=== PATIENT | male | born 1965 | race Caucasian/White ===

== ENCOUNTER 2021-04-25 16:22 | Emergency (ER) | payer OTHER, SELFPAY ==
[2021-04-25 16:29] VITALS: BP 136/86; PULSE 96; RESP 18; TEMP 36.6; O2SAT 94; BMI 31.6
--- NOTE | 2021-04-25 16:47 | ED.WOUNDLAC ---
HPI - Wound/Laceration General Chief Complaint: Wound/Laceration Stated Complaint: lac Time Seen by Provider: 04/25/21 16:46 History of Present Illness HPI narrative: Patient complains of left index finger laceration when he accidentally cut himself with the tool, no numbness weakness or tingling, no other injury Related Data Allergies Allergy/AdvReac Type Severity Reaction Status Date / Time No Known Allergies Allergy Unverified 07/30/20 17:17 Review of Systems Review of Systems: Positive for left index finger laceration Negatives are no fever no chills no dizziness no weakness no fainting no numbness weakness or tingling no joint pain Yes all other systems are reviewed and are negative [facility] Past Medical History Source: obtained from family Medical History (Updated 05/02/21 @ 00:01 by Alonzo Damaria ines) No known health problems Social History Social History Advance Directives: No Advance Directives Information Provided: No Physical Exam Vital Signs: Vital Signs: Last Vital Signs Temp 97.8 F 04/25/21 16:29 Pulse 96 04/25/21 16:29 Resp 18 04/25/21 16:29 BP 136/86 04/25/21 16:29 Pulse Ox 94 04/25/21 16:29 Body Mass Index 31.6 General appearance no acute distress Head is normocephalic atraumatic Neck is supple Respiratory no distress Left index finger has 1.5 cm laceration proximal phalanx Neurovascular intact no numbness weakness no tendon deficit, full range of motion in all joints Course Course Course Narrative: Left index finger laceration note Digital block with 6 cc of 1% lidocaine is placed with good anesthesia Wound is inspected no foreign body It is cleansed and irrigated with normal saline Four sutures are placed and bleeding is controlled and dressing is applied Discharge Plan Discharge Clinical Impression: Laceration Patient Disposition: Home, Self-Care Additional Instructions: Stitches out in 7 days He got a tetanus shot Return any time for redness swelling any sign of infection Stand Alone Forms: Work/School Release Interventions: ED Discharge Assessment Last Done: 04/25/21 18:32 Discharge Date/Time: 04/25/21 18:33
[2021-04-25] MEDS: Diphth,Pertus(ACell),Tet Adult 0.5 ML SYRINGE IM (17:22)
[2021-04-25] MEDS: Lidocaine HCl 1 % MPF 5 ML VIAL SUBCUT ×2 (17:22)
== END 2021-04-25 18:33 | disposition home or self-care (01) ==
PROVIDERS: Emergency Provider Internal Medicine
DX: S61.211A Laceration without foreign body of left index finger without damage to nail, initial encounter (principal); W27.8XXA Contact with other nonpowered hand tool, initial encounter; Y93.9 Activity, unspecified; Y92.9 Unspecified place or not applicable; Y99.9 Unspecified external cause status
CPT/HCPCS: 12001; 90471; 90715; 99284

== ENCOUNTER 2021-05-01 13:43 | Emergency (ER) | payer OTHER, SELFPAY ==
--- NOTE | 2021-05-01 14:17 | ED.WOUNDLAC ---
HPI - Wound/Laceration General Chief Complaint: Wound/Laceration Stated Complaint: suture removal Time Seen by Provider: 05/01/21 14:17 History of Present Illness HPI narrative: Patient here today for suture removal of left index finger laceration that was sutured 7 days ago, no complaints no fever no chills no redness no swelling Related Data Allergies Allergy/AdvReac Type Severity Reaction Status Date / Time No Known Allergies Allergy Unverified 07/30/20 17:17 Review of Systems Review of Systems: Negatives are no fever no chills no swelling no redness no discharge no joint pain no rash Yes all other systems are reviewed and are negative [facility] Past Medical History Source: nursing notes reviewed Medical History (Updated 05/01/21 @ 14:20 by NICK James) No known health problems Social History Social History Advance Directives: No Advance Directives Information Provided: No Physical Exam Vital Signs: General appearance is no acute distress Head is normocephalic atraumatic Neck is supple Respiratory no distress Left index finger has [address] on the palmar aspect of the distal phalanx, no redness no discharge no swelling, all joint movement is normal full flexor tendon function, sensation and motor intact Course Course Course Narrative: Left index finger 4 sutures are removed without problem no dehiscence no discharge no bleeding Discharge Plan Discharge Clinical Impression: Visit for suture removal Patient Disposition: Home, Self-Care Additional Instructions: Stitches were removed, no sign of any infection, okay for all activity
[2021-05-01 14:25] VITALS: BP 136/76; PULSE 78; RESP 16; TEMP 36.9; O2SAT 94; BMI 31.6
== END 2021-05-01 14:35 | disposition home or self-care (01) ==
PROVIDERS: Emergency Provider Emergency Medicine
DX: S61.211D Laceration without foreign body of left index finger without damage to nail, subsequent encounter (principal); X58.XXXD Exposure to other specified factors, subsequent encounter
CPT/HCPCS: 99283

== ENCOUNTER 2021-06-13 22:21 | Emergency (ER) | payer OTHER, SELFPAY ==
--- NOTE | 2021-06-13 | ECG_ITS ---
Test Reason : DIZZINESS Blood Pressure : / mmHG Vent. Rate : 058 BPM Atrial Rate : 058 BPM P-R Int : 172 ms QRS Dur : 096 ms QT Int : 426 ms P-R-T Axes : 038 004 051 degrees QTc Int : 418 ms Sinus bradycardia Otherwise normal ECG When compared to the previous EKG of No significant changes seen Referred By: Generic ED Physician Electronically Signed By:Vinicio Albarado
[2021-06-13 22:26] VITALS: BP 141/97; PULSE 60; RESP 18; TEMP 36.4; O2SAT 97; BMI 30.9
[2021-06-13 22:42] LABS: Glucose, Whole Blood 113 mg/dL (60-115)
[2021-06-13 22:54] LABS: Basophils Percent Auto 0.5 % (0-2); Eosinophils Absolute Auto 0.2 X10*3/uL (0.0-0.4); Eosinophils Percent Auto 3.7 % (0-4); Hematocrit 44.4 % (42-52); Hemoglobin 14.7 g/dl (14.0-18.0); Imm Gran Abs Auto 0.01 X10*3/uL (0.00-0.03); Imm Gran Pct Auto 0.2 % (0.0-0.4); Lymphocytes Absolute Auto 1.8 X10*3/uL (1.2-4.9); Mean Corpuscular HGB Conc 33.1 g/dl (31.0-36.0); Mean Corpuscular Hemoglobin 31.1 pg (27.0-33.0); Mean Corpuscular Volume 94.1 fL (80-98); Mean Platelet Volume 8.9 fL (9.4-12.4); Monocytes Absolute Auto 0.6 X10*3/uL (0.1-1.2); Monocytes Percent Auto 10.2 % (2-11); Neutrophils Absolute Auto 3.6 X10*3/uL (2.0-8.3); Neutrophils Percent Auto 57.4 % (45-73); Platelet Count 288 X10*3/uL (160-400); Red Blood Count 4.72 X10*6/uL (4.60-5.80); Red Cell Distribution Width 12.9 % (11.0-16.0); White Blood Count 6.3 X10*3/uL (4.8-10.8)
[2021-06-13 22:55] LABS: MANUAL DIFF FLAG NO
[2021-06-13 23:29] LABS: Alanine Aminotransferase 18 U/L (0-40); Albumin Level 4.1 g/dL (3.5-5.0); Alkaline Phosphatase 95 U/L (39-117); Anion Gap 13 (12-20); Aspartate Amino Transferase 15 U/L (5-37); Bilirubin Total 0.3 mg/dL (0.0-1.0); Blood Urea Nitrogen 17 mg/dL (9-16); Calcium 9.2 mg/dL (8.4-10.2); Carbon Dioxide 26 mmol/L (22-29); Chloride 106 mmol/L (96-108); Estimated Glomerular Filt Rate > 60; Glucose Random 120 mg/dL (60-115); Lipase 30 U/L (8-78); Potassium 4.2 mmol/L (3.3-5.1); Sodium 141 mmol/L (135-145); Total Protein 6.9 g/dL (6.5-8.0)
[2021-06-13 23:41] VITALS: BP 142/84; PULSE 59; RESP 16; O2SAT 95
--- NOTE | 2021-06-14 01:52 | ED.DIZZY ---
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 while he was taking a shower. He states that the room was spinning around him but denies any associated fevers, chills, shortness of breath, chest pain/palpitations, nausea at that initial onset, denies any visual/auditory/speech changes, denies any headaches and was able to finish his shower and continued to be dizzy while he was walking into the kitchen to eat dinner but denies any gait instability while doing this. He states that he continued with his dizziness while he was eating dinner and went to lay down, but then became mildly nauseous and vomited 1 time. He then came into the emergency room and reports that during his weight he has had mild improvement. Related Data Allergies Allergy/AdvReac Type Severity Reaction Status Date / Time No Known Allergies Allergy Unverified 07/30/20 17:17 Review of Systems Review of Systems: Pertinent positives and negatives as stated in HPI 10 point review of systems is otherwise negative. PMFSH Past Medical History Source: nursing notes reviewed Medical History Cyst No known health problems Social History Social History Advance Directives: No Advance Directives Information Provided: No Physical Exam Vital Signs: Vital Signs: Last Vital Signs Temp 97.6 F 06/13/21 22:26 Pulse 59 06/13/21 23:41 Resp 16 06/13/21 23:41 BP 142/84 H 06/13/21 23:41 Pulse Ox 95 06/13/21 23:41 Body Mass Index 30.9 VITAL SIGNS: Reviewed. GENERAL: Well developed, well nourished, in no acute distress. HEAD: Normocephalic/atraumatic EYES: PERRLA, EOMI intact without pain, no nystagmus/pallor/icterus noted EARS: Ext canals without abnormality, TMs non-bulging and non-erythematous NOSE: Nares patent bilateral OROPHARYNX: no oral lesions noted, posterior pharynx clear NECK: Supple, no adenopathy LUNGS: Normal breath sounds. No adventitious sounds or accessory muscle use. SpO2<95> CARDIOVASCULAR: Regular rate and rhythm without noted murmurs, no JVD or lower extremity edema. ABDOMEN: Soft, non-tender, non-distended with bowel sounds. MUSCULOSKELETAL: No tenderness, deformities, or effusions noted on gross inspection. EXTREMITIES: No cyanosis, clubbing or edema. SKIN: Inspection of the skin reveals no rashes, ulcerations, jaundice, pallor, or petechiae. NEUROLOGIC: Alert and oriented x 4. Strength and sensation to light touch were grossly intact x 4, no facial asymmetry, no pronator drift, cranial nerves 2-12 are grossly intact, no truncal or gait instability noted, cerebellar testing is intact Course Course Course Narrative: 55-year-old male with history and clinical presentation consistent with vertigo without ataxic or focal symptoms lending itself to low clinical suspicion for intracranial abnormality. Review of all investigations negative for acute findings and serial troponins while detectable were not elevated. All results and findings were discussed with the patient at bedside and on re-evaluation he stated that he felt better after receiving the meclizine. He was strongly encouraged to follow-up with his primary care provider. MDM - Dizziness Lab Data Result diagrams: 06/13/21 22:47 06/13/21 22:47 Labs: Lab Results 06/13/21 06/13/21 06/13/21 Range/Units 22:38 22:47 22:47 WBC 6.3 (4.8-10.8) X10*3/uL RBC 4.72 (4.60-5.80) X10*6/uL Hgb 14.7 (14.0-18.0) g/dl Hct 44.4 (42-52) % MCV 94.1 (80-98) fL MCH 31.1 (27.0-33.0) pg MCHC 33.1 (31.0-36.0) g/dl RDW 12.9 (11.0-16.0) % Plt Count 288 (160-400) X10*3/uL MPV 8.9 L (9.4-12.4) fL Immature Gran % (Auto) 0.2 (0.0-0.4) % Neut % (Auto) 57.4 (45-73) % Lymph % (Auto) 28.0 (20-40) % [place] % (Auto) 10.2 (2-11) % Eos % (Auto) 3.7 (0-4) % Baso % (Auto) 0.5 (0-2) % Lymph # (Auto) 1.8 (1.2-4.9) X10*3/uL [place] # (Auto) 0.6 (0.1-1.2) X10*3/uL Eos # (Auto) 0.2 (0.0-0.4) X10*3/uL Baso # (Auto) 0.0 (0.0-0.2) X10*3/uL Abs Immat Gran (auto) 0.01 (0.00-0.03) X10*3/uL Absolute Neuts (auto) 3.6 (2.0-8.3) X10*3/uL Absolute Nucleated RBC 0.000 (0.0-0.012) X10*3/uL Nucleated RBC % (auto) 0.0 (0.0-0.2) /100WBC Sodium 141 (135-145) mmol/L Potassium 4.2 (3.3-5.1) mmol/L Chloride 106 (96-108) mmol/L Carbon Dioxide 26 (22-29) mmol/L Anion Gap 13 (12-20) BUN 17 H (9-16) mg/dL Creatinine 0.82 (0.5-1.4) mg/dL Estim Creat Clear Calc 97.0 Estimated GFR > 60 POC Glucose 113 (60-115) mg/dL Random Glucose 120 H (60-115) mg/dL Calcium 9.2 (8.4-10.2) mg/dL Total Bilirubin 0.3 (0.0-1.0) mg/dL AST 15 (5-37) U/L ALT 18 (0-40) U/L Alkaline Phosphatase 95 (39-117) U/L Troponin I High Sens (<3.5-35.0) ng/L Total Protein 6.9 (6.5-8.0) g/dL Albumin 4.1 (3.5-5.0) g/dL Lipase 30 (8-78) U/L Urine Opiates Screen (Not Detect) Ur Barbiturates Screen (Not Detect) Ur Phencyclidine Scrn (Not Detect) Ur Amphetamines Screen (Not Detect) U Benzodiazepines Scrn (Not Detect) Urine Cocaine Screen (Not Detect) U Marijuana (THC) Screen (Not Detect) Ethyl Alcohol mg/dL 06/13/21 06/13/21 06/14/21 Range/Units 22:47 22:47 02:01 WBC (4.8-10.8) X10*3/uL RBC (4.60-5.80) X10*6/uL Hgb (14.0-18.0) g/dl Hct (42-52) % MCV (80-98) fL MCH (27.0-33.0) pg MCHC (31.0-36.0) g/dl RDW (11.0-16.0) % Plt Count (160-400) X10*3/uL MPV (9.4-12.4) fL Immature Gran % (Auto) (0.0-0.4) % Neut % (Auto) (45-73) % Lymph % (Auto) (20-40) % [place] % (Auto) (2-11) % Eos % (Auto) (0-4) % Baso % (Auto) (0-2) % Lymph # (Auto) (1.2-4.9) X10*3/uL [place] # (Auto) (0.1-1.2) X10*3/uL Eos # (Auto) (0.0-0.4) X10*3/uL Baso # (Auto) (0.0-0.2) X10*3/uL Abs Immat Gran (auto) (0.00-0.03) X10*3/uL Absolute Neuts (auto) (2.0-8.3) X10*3/uL Absolute Nucleated RBC (0.0-0.012) X10*3/uL Nucleated RBC % (auto) (0.0-0.2) /100WBC Sodium (135-145) mmol/L Potassium (3.3-5.1) mmol/L Chloride (96-108) mmol/L Carbon Dioxide (22-29) mmol/L Anion Gap (12-20) BUN (9-16) mg/dL Creatinine (0.5-1.4) mg/dL Estim Creat Clear Calc Estimated GFR POC Glucose (60-115) mg/dL Random Glucose (60-115) mg/dL Calcium (8.4-10.2) mg/dL Total Bilirubin (0.0-1.0) mg/dL AST (5-37) U/L ALT (0-40) U/L Alkaline Phosphatase (39-117) U/L Troponin I High Sens 4.0 (<3.5-35.0) ng/L Total Protein (6.5-8.0) g/dL Albumin (3.5-5.0) g/dL Lipase (8-78) U/L Urine Opiates Screen Not Detected (Not Detect) Ur Barbiturates Screen Not Detected (Not Detect) Ur Phencyclidine Scrn Not Detected (Not Detect) Ur Amphetamines Screen Not Detected (Not Detect) U Benzodiazepines Scrn Not Detected (Not Detect) Urine Cocaine Screen Not Detected (Not Detect) U Marijuana (THC) Screen Not Detected (Not Detect) Ethyl Alcohol < 10 mg/dL 06/14/21 Range/Units 03:19 WBC (4.8-10.8) X10*3/uL RBC (4.60-5.80) X10*6/uL Hgb (14.0-18.0) g/dl Hct (42-52) % MCV (80-98) fL MCH (27.0-33.0) pg MCHC (31.0-36.0) g/dl RDW (11.0-16.0) % Plt Count (160-400) X10*3/uL MPV (9.4-12.4) fL Immature Gran % (Auto) (0.0-0.4) % Neut % (Auto) (45-73) % Lymph % (Auto) (20-40) % [place] % (Auto) (2-11) % Eos % (Auto) (0-4) % Baso % (Auto) (0-2) % Lymph # (Auto) (1.2-4.9) X10*3/uL [place] # (Auto) (0.1-1.2) X10*3/uL Eos # (Auto) (0.0-0.4) X10*3/uL Baso # (Auto) (0.0-0.2) X10*3/uL Abs Immat Gran (auto) (0.00-0.03) X10*3/uL Absolute Neuts (auto) (2.0-8.3) X10*3/uL Absolute Nucleated RBC (0.0-0.012) X10*3/uL Nucleated RBC % (auto) (0.0-0.2) /100WBC Sodium (135-145) mmol/L Potassium (3.3-5.1) mmol/L Chloride (96-108) mmol/L Carbon Dioxide (22-29) mmol/L Anion Gap (12-20) BUN (9-16) mg/dL Creatinine (0.5-1.4) mg/dL Estim Creat Clear Calc Estimated GFR POC Glucose (60-115) mg/dL Random Glucose (60-115) mg/dL Calcium (8.4-10.2) mg/dL Total Bilirubin (0.0-1.0) mg/dL AST (5-37) U/L ALT (0-40) U/L Alkaline Phosphatase (39-117) U/L Troponin I High Sens 4.0 (<3.5-35.0) ng/L Total Protein (6.5-8.0) g/dL Albumin (3.5-5.0) g/dL Lipase (8-78) U/L Urine Opiates Screen (Not Detect) Ur Barbiturates Screen (Not Detect) Ur Phencyclidine Scrn (Not Detect) Ur Amphetamines Screen (Not Detect) U Benzodiazepines Scrn (Not Detect) Urine Cocaine Screen (Not Detect) U Marijuana (THC) Screen (Not Detect) Ethyl Alcohol mg/dL Discharge Plan Discharge Clinical Impression: Vertigo Patient Disposition: Home, Self-Care Instructions: Vertigo (ED) Additional Instructions: 1. Establezca un seguimiento con un proveedor de atenci?n primaria lo antes posible. 2. Contin?e nadine hidratado, especialmente con agua. Regrese a la lauren de emergencias por un empeoramiento francisco j de los s?ntomas. Referrals: Physician,Unknown [Primary Care Provider] - 2 days Print Language: Urdu
[2021-06-14 01:57] LABS: Ethanol < 10 mg/dL
[2021-06-14] MEDS: Meclizine HCl 25 MG TABLET PO (02:00)
[2021-06-14 02:21] LABS: Amphetamine Screen Urine Not Detected (Not Detect); Barbiturates, Urine Not Detected (Not Detect); Benzodiazepines Screen Urine Not Detected (Not Detect); Cannabinoid Screen Urine Not Detected (Not Detect); Cocaine Screen Urine Not Detected (Not Detect); Opiate Screen Urine Not Detected (Not Detect); Phencyclidine Screen Urine Not Detected (Not Detect)
== END 2021-06-14 05:02 | disposition home or self-care (01) ==
PROVIDERS: Emergency Provider Student in an Organized Health Care Education/Training Program
DX: R42 Dizziness and giddiness (principal); R11.10 Vomiting, unspecified; Z79.899 Other long term (current) drug therapy
CPT/HCPCS: 36415; 80053; 80307; 82077; 82947; 83690; 84484; 85025; 93005; 99283

== ENCOUNTER 2021-12-09 10:22 | Outpatient (REF) | payer OTHER, SELFPAY ==
[2021-12-09 12:10] LABS: Binax Internal Control QC Valid; Binax Now Covid-19 Ag Negative (Negative)
== END 2021-12-09 10:23 | disposition home or self-care (01) ==
LOC: HO.LAB 10:22
PROVIDERS: Visit Provider Internal Medicine
DX: Z20.822 Contact with and (suspected) exposure to COVID-19 (principal)
CPT/HCPCS: C9803

== ENCOUNTER 2024-10-31 08:12 | Emergency (ER) | payer OTHER, SELFPAY ==
[2024-10-31 08:16] VITALS: BP 147/90; PULSE 89; RESP 20; TEMP 36.4; O2SAT 94; BMI 31.9
[2024-10-31 08:39] VITALS: BP 146/89; PULSE 83; RESP 16; O2SAT 93
[2024-10-31 08:47] LABS: MANUAL DIFF FLAG NO
[2024-10-31 08:49] LABS: Basophils Percent Auto 0.3 % (0-2); Eosinophils Absolute Auto 0.2 X10*3/uL (0.0-0.4); Eosinophils Percent Auto 2.5 % (0-4); Hematocrit 43.8 % (42.0-52.0); Hemoglobin 15.2 g/dl (14.0-18.0); Imm Gran Abs Auto 0.01 X10*3/uL (0.00-0.03); Imm Gran Pct Auto 0.2 % (0.0-0.4); Lymphocytes Absolute Auto 1.9 X10*3/uL (1.2-4.9); Lymphocytes Percent Auto 29.4 % (20-40); Mean Corpuscular HGB Conc 34.7 g/dl (31.0-36.0); Mean Corpuscular Hemoglobin 31.8 pg (27.0-33.0); Mean Corpuscular Volume 91.6 fL (80.0-98.0); Mean Platelet Volume 8.9 fL (9.4-12.4); Monocytes Absolute Auto 0.6 X10*3/uL (0.1-1.2); Monocytes Percent Auto 10.1 % (2-11); Neutrophils Absolute Auto 3.7 x10*3/uL (2.0-8.3); Neutrophils Percent Auto 57.5 % (45-73); Platelet Count 297 X10*3/uL (160-400); Red Blood Count 4.78 X10*6/uL (4.60-5.80); Red Cell Distribution Width 12.6 % (11.0-16.0); White Blood Count 6.4 X10*3/uL (4.8-10.8)
[2024-10-31 08:51] LABS: Appearance Urine Clear; Color Urine Yellow; Glucose Urine UA Negative (Negative); Leukocyte Esterase Urine Large (3+) (Negative); Nitrite Urine Negative (Negative); Specific Gravity - Urine 1.015 (1.005-1.025); UMIC TRIGGER UACC YES; Urine Blood Negative (Negative); Urine Ketones Negative (Negative); Urine Protein Negative (Neg-Trace)
[2024-10-31 09:00] LABS: Bacteria Urine None Seen (None Seen); Hyaline Casts Urine 0-2 /LPF (0-2); RBC Urine 0-2 /HPF (0-2); Squamous Epithelial Cell Urine 0-2 /HPF (0-2); UACC Culture Trigger YES
[2024-10-31 09:31] LABS: Alanine Aminotransferase 18 U/L (0-40); Alkaline Phosphatase 67 U/L (39-117); Anion Gap 10 (12-20); Aspartate Amino Transferase 19 U/L (5-37); Bilirubin Direct 0.2 mg/dL (0.0-0.5); Bilirubin Total 0.6 mg/dL (0.0-1.0); Blood Urea Nitrogen 11 mg/dL (9-16); Calcium 9.2 mg/dL (8.4-10.2); Carbon Dioxide 28 mmol/L (22-29); Chloride 107 mmol/L (96-108); Creatinine Clr Calc Pharmacy 99.9; Estimated Glomerular Filt Rate > 60; Glucose Random 92 mg/dL (60-115); Lipase 19 U/L (8-78); Potassium 3.9 mmol/L (3.3-5.1); Sodium 141 mmol/L (135-145); Total Protein 7.1 g/dL (6.5-8.0)
--- NOTE | 2024-10-31 09:37 | ED_ITS ---
HPI - General Adult General Chief complaint: General Medical Stated complaint: Rectal bleeding Time Seen by Provider: 10/31/24 08:35 History of Present Illness HPI narrative: Patient is a 59-year-old male presented today with having at 1st stool now pain in the rectum, blood noted. Symptoms been ongoing for about 24-48 hours. Positive increased pain. No coughing or congestion or upper respiratory symptoms. No abdominal surgery done in the past. No significant past medical history. No chest pain or shortness of breath. Not on blood thinners. Related Data Previous Rx's ?Medication ?Instructions ?Recorded levofloxacin 500 mg tablet 500 mg PO DAILY #7 tabs 10/31/24 Allergies Allergy/AdvReac Type Severity Reaction Status Date / Time No Known Allergies Allergy Verified 10/31/24 08:18 Review of Systems 2 Review of Systems: Positive pain to the anal area Positive bloody stool Yes all other systems are reviewed and are negative PMFSH Past Medical History Attestation statement: The following information was validated with the patient. Medical History Cyst No known health problems Social History Social History Smoked in Last 30 Days: No Use of substances other than those prescribed or required for medical reasons: No Advance Directives: No Advance Directives Information Provided: Yes Do you have a plan to hurt others: No Plan Physical Exam ED Vital Signs: Vital Signs - 24 hr 10/31/24 08:16 10/31/24 08:39 Temperature 97.6 F Pulse Rate 89 83 Respiratory Rate 20 16 Blood Pressure 147/90 H 146/89 H Pulse Oximetry 94 93 Oxygen Delivery Method Room Air Room Air BMI result Body Mass Index 31.9 Appearance: Alert. Oriented X3. No acute distress. Eyes: Pupils equal, round and reactive to light. ENT: Pharynx normal. Neck: Normal inspection. Neck supple. No lymph nodes noted. No crepitus CVS: Normal heart rate and rhythm. Pulses normal. Normal S1 and S2 Respiratory: No respiratory distress. Breath sounds normal. No Wheezing. No rales Abdomen: Soft and nontender. No rigidity. No distention. good BS x4 Rectal exam positive for large external hemorrhoid tender to touch. Skin: Skin warm and dry. Normal skin color. Normal skin turgor. Extremities: No lower extremity edema. Neurovascular intact to all extremities. No Lacerations. No Rash Neuro: Oriented X 3. No motor deficit. No sensory deficit. Moving all extermities. No slurred speech Medical Decision Making Medical Decision Making [facility] Narrative: Patient's hemoglobin is normal. At 15.2. Abdominal exam is soft nontender. Kidney function is normal. Not on any medications. Likely the hemorrhoid causing the bright red blood per rectum. Causing the anal pain. Will contact surgery for or consultation Patient seen by surgery. Thomson this mostly internal hemorrhoids. Require follow-up on an outpatient basis. Urine showed question infection patient otherwise well-appearing abdomen is soft nontender. Antibiotics given for the UTI. Patient given follow-up for the hemorrhoids. Currently in stable condition. 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 10/31/24 08:41 10/31/24 09:13 Labs: Lab Results 10/31/24 10/31/24 Range/Units 08:41 09:13 WBC 6.4 (4.8-10.8) X10*3/uL RBC 4.78 (4.60-5.80) X10*6/uL Hgb 15.2 (14.0-18.0) g/dl Hct 43.8 (42.0-52.0) % MCV 91.6 (80.0-98.0) fL MCH 31.8 (27.0-33.0) pg MCHC 34.7 (31.0-36.0) g/dl RDW 12.6 (11.0-16.0) % Plt Count 297 (160-400) X10*3/uL MPV 8.9 L (9.4-12.4) fL Immature Gran % (Auto) 0.2 (0.0-0.4) % Neut % (Auto) 57.5 (45-73) % Lymph % (Auto) 29.4 (20-40) % [place] % (Auto) 10.1 (2-11) % Eos % (Auto) 2.5 (0-4) % Baso % (Auto) 0.3 (0-2) % Lymph # (Auto) 1.9 (1.2-4.9) X10*3/uL [place] # (Auto) 0.6 (0.1-1.2) X10*3/uL Eos # (Auto) 0.2 (0.0-0.4) X10*3/uL Baso # (Auto) 0.0 (0.0-0.2) X10*3/uL Abs Immat Gran (auto) 0.01 (0.00-0.03) X10*3/uL Absolute Neuts (auto) 3.7 (2.0-8.3) x10*3/uL Absolute Nucleated RBC 0.000 (0.0-0.012) X10*3/uL Nucleated RBC % (auto) 0.0 (0.0-0.2) /100WBC Sodium 141 (135-145) mmol/L Potassium 3.9 (3.3-5.1) mmol/L Chloride 107 (96-108) mmol/L Carbon Dioxide 28 (22-29) mmol/L Anion Gap 10 L (12-20) BUN 11 (9-16) mg/dL Creatinine 0.77 (0.5-1.4) mg/dL Estim Creat Clear Calc 99.9 Estimated GFR > 60 Random Glucose 92 (60-115) mg/dL Calcium 9.2 (8.4-10.2) mg/dL Total Bilirubin 0.6 (0.0-1.0) mg/dL Direct Bilirubin 0.2 (0.0-0.5) mg/dL AST 19 (5-37) U/L ALT 18 (0-40) U/L Alkaline Phosphatase 67 (39-117) U/L Total Protein 7.1 (6.5-8.0) g/dL Albumin 4.0 (3.5-5.0) g/dL Lipase 19 (8-78) U/L Urine Color Yellow Urine Appearance Clear Urine pH 7.0 (5.0-9.0) Ur Specific [place] 1.015 (1.005-1.025) Urine Protein Negative (Neg-Trace) mg/dL Urine Glucose (UA) Negative (Negative) mg/dL Urine Ketones Negative (Negative) mg/dL Urine Blood Negative (Negative) Urine Nitrite Negative (Negative) Ur Leukocyte Esterase Large (3+) H (Negative) Urine RBC 0-2 (0-2) /HPF Urine WBC 6-10 H (0-5) /HPF Ur Squamous Epith Cells 0-2 (0-2) /HPF Urine Bacteria None Seen (None Seen) Hyaline Casts 0-2 (0-2) /LPF Prescription Management I considered prescription management with: Antibiotic (Antibiotic given for the UTI) Discharge Plan Discharge Clinical Impression: Hemorrhoids Patient Disposition: Home, Self-Care Instructions: Hemorrhoids (ED), Urinary Tract Infection in Men (ED) Prescriptions: New levofloxacin 500 mg tablet 500 mg PO DAILY Qty: 7 0RF Referrals: John Vivar MD [Physician] - 11/04/24 Lorrie Albert PA-C [Primary Care Provider] - 11/04/24 Print Language: Mexican
--- NOTE | 2024-10-31 09:57 | P.CONGS_ITS ---
History of Present Illness Consult details Consult date: 10/31/24 Requesting physician: Generic ED Physician Narrative: 59-year-old male patient presenting to the emergency department with complaints of rectal pain and bleeding. He reports undergoing a colonoscopy approximately 2 years ago and was found to have hemorrhoids. He feels a painful lump at his anal opening which bleeds when he is having a bowel movement. The pain is present all the time. He is currently not using any topical preparations. In the emergency department he was found to have large prolapsing internal hemorrhoids. Surgical consultation was requested for possible hemorrhoidectomy. Review of Systems 2 Review of Systems: Yes all other systems are reviewed and are negative PMFSH Past Medical History Medical History Cyst No known health problems Meds Allergies Allergy/AdvReac Type Severity Reaction Status Date / Time No Known Allergies Allergy Verified 10/31/24 08:18 Physical Exam 2 Vital Signs: Vital Signs: Last Vital Signs Temp 97.6 F 10/31/24 08:16 Pulse 83 10/31/24 08:39 Resp 16 10/31/24 08:39 BP 146/89 H 10/31/24 08:39 Pulse Ox 93 10/31/24 08:39 O2 Del Method Room Air 10/31/24 08:39 BMI result Body Mass Index 31.9 Const: General: cooperative and no acute distress Nutritional Appearance: w ell nourished Orientation/consciousness: patient oriented x3 Limitations: no limitations HEENT: Head: Yes normocephalic and Yes atraumatic Ears: hearing grossly normal bilaterally Resp: Effort & Inspection: normal respiratory effort, no audible wheezes, no cough and no respiratory distress Cardio: Jugular venous distension: no JVD GI: Other: Soft and nondistended. External anal examination: No evidence of thrombosed external hemorrhoid, perirectal abscess or draining fistula Digital examination: Prolapsing internal hemorrhoids with no evidence of thrombosis, tender to palpation. Reducible with light pressure (grade 3). Anoscopic examination deferred due to pain. Inspection: Yes normal to inspection Skin: Other: Warm, dry, no rash Neuro: General: patient oriented x3 Extrem: General: Yes no clubbing, cyanosis or edema Results Labs 10/31/24 08:41 10/31/24 09:13 Labs: Abnormal lab results 10/31/24 10/31/24 Range/Units 08:41 09:13 MPV 8.9 L (9.4-12.4) fL Anion Gap 10 L (12-20) Ur Leukocyte Esterase Large (3+) H (Negative) Urine WBC 6-10 H (0-5) /HPF Short CBC 10/31/24 Range/Units 08:41 WBC 6.4 (4.8-10.8) X10*3/uL Hgb 15.2 (14.0-18.0) g/dl Hct 43.8 (42.0-52.0) % Plt Count 297 (160-400) X10*3/uL BMP 10/31/24 09:13 Sodium 141 Potassium 3.9 Chloride 107 Carbon Dioxide 28 BUN 11 Creatinine 0.77 Calcium 9.2 Liver Function 10/31/24 Range/Units 09:13 Total Bilirubin 0.6 (0.0-1.0) mg/dL Direct Bilirubin 0.2 (0.0-0.5) mg/dL AST 19 (5-37) U/L ALT 18 (0-40) U/L Alkaline Phosphatase 67 (39-117) U/L Albumin 4.0 (3.5-5.0) g/dL Urine 10/31/24 Range/Units 08:41 Urine Color Yellow Urine Appearance Clear Urine pH 7.0 (5.0-9.0) Ur Specific [place] 1.015 (1.005-1.025) Urine Protein Negative (Neg-Trace) mg/dL Urine Glucose (UA) Negative (Negative) mg/dL All other labs normal. Assessment and Plan (1) Hemorrhoids: Qualifiers: Hemorrhoid type: third degree Qualified Code(s): K64.2 - Third degree hemorrhoids Status: Acute Plan 59-year-old male patient presenting with prolapsing internal hemorrhoids with pain and bleeding. I recommended a combination of warm soaks, fiber therapy, and hydrocortisone cream to be applied twice daily to the hemorrhoids. I suggested he returned to the office in 1-2 weeks for follow-up examination. He expressed understanding and agrees with the plan. Procedures Date of Service Date of Service: 10/31/24
[2024-10-31 10:38] VITALS: BP 146/89; PULSE 83; RESP 16; TEMP 36.9; O2SAT 93
== END 2024-10-31 10:39 | disposition home or self-care (01) ==
PROVIDERS: Emergency Provider Emergency Medicine Emergency Medical Services; PCP Physician Assistant
DX: K64.2 Third degree hemorrhoids (principal); K64.9 Unspecified hemorrhoids; N39.0 Urinary tract infection, site not specified
CPT/HCPCS: 36415; 80048; 80076; 81001; 83690; 85025; 87086; 99283; 99284

== ENCOUNTER → 2024-10-31 08:57 | Outpatient (BNV) | payer OTHER, SELFPAY | PROVIDERS: Emergency Provider Emergency Medicine Emergency Medical Services; PCP Physician Assistant; Visit Provider Surgery | DX: K64.2 Third degree hemorrhoids (principal) | CPT/HCPCS: 99283 ==

== ENCOUNTER 2024-11-05 14:46 | Outpatient (AMB) | payer OTHER, SELFPAY ==
--- NOTE | 2024-11-05 14:56 | MHC.OFFVIS ---
Vital Signs 11/05/24 15:03 Height 5 ft 4 in Weight 188 lb BMI 32.3 BP 156/93 H Blood Pressure Location Lt brachial Position Sitting Pulse 87 Intake Visit Reasons: Hemorroids Intake Note: Patient is seen in office for ER follow up visit, following hemorrhoids. Pt c/o:had 3 episodes of bleeding and constipation at the time, currently does not have any symptoms, denies any concerns at the time visit ED:10/31/24 Special Education Itinerant Teacher Required: Yes Special Education Itinerant Teacher Language: Pool Hand Services: Special Education Itinerant Teacher Present Special Education Itinerant Teacher Name: Cherrie FLEMING Information Interpreted: non-clinical & clinical Accompanied by: Self / Same As Patient Allergies No Known Allergies Allergy (Verified 10/31/24 08:18) Medication List - Last Reconciled 11/05/24 by John Vivar MD hydrocortisone 2.5% 1 appl TX BID PRN levofloxacin 500 mg PO DAILY HPI Comments Details: 59-year-old male patient previously evaluated in the emergency department on 10/31/2024 for painful prolapsing hemorrhoids. At that time he was reporting severe rectal pain and bleeding. He underwent a colonoscopy approximately 2 years prior and was found to have hemorrhoids at that time as well. The hemorrhoids were asymptomatic until recently when he began to have severe pain and prolapsing of the hemorrhoids. In the emergency department he was noted to have grade 3 internal hemorrhoids. Nonoperative measures including fiber therapy, warm soaks and hydrocortisone cream were recommended. He returns today for follow-up examination. He reports no further pain or bleeding after using the cream. [facility] Medical History Cyst No known health problems Social History Alcohol intake: current Alcohol intake frequency: holidays/special occasions only Patient Tobacco Use Status: Never used Tobacco Review of Systems Const All systems reviewed & are unremarkable except as noted in HPI and below Physical Exam Vital Signs: Last Vital Signs Temp 97.6 F 10/31/24 08:16 Pulse 83 10/31/24 08:39 Resp 16 10/31/24 08:39 BP 146/89 H 10/31/24 08:39 Pulse Ox 93 10/31/24 08:39 O2 Del Method Room Air 10/31/24 08:39 BMI result Body Mass Index 31.9 Const General: cooperative and no acute distress Nutritional Appearance: well nourished Orientation/consciousness: patient oriented x3 Limitations: no limitations HEENT Head: Yes normocephalic and Yes atraumatic Ears: hearing grossly normal bilaterally Resp Effort & Inspection: normal respiratory effort, no audible wheezes, no cough and no respiratory distress Cardio Jugular venous distension: no JVD GI Other: Soft and nondistended. External anal examination: No evidence of thrombosed external hemorrhoid, perirectal abscess or draining fistula Digital examination: Minimally prolapsing internal hemorrhoids with no evidence of bleeding. No tenderness to palpation. (grade 3). Anoscopic examination deferred. Inspection: Yes normal to inspection Skin Other: Warm, dry, no rash Neuro General: patient oriented x3 Extrem General: Yes no clubbing, cyanosis or edema Assessment & Plan Assessment & Plan (1) Hemorrhoids: Code(s): K64.9 - Unspecified hemorrhoids Category: Medical Qualifiers: Hemorrhoid type: third degree Qualified Code(s): K64.2 - Third degree hemorrhoids Plan 59-year-old male patient presenting initially with bleeding painful hemorrhoids evaluated in the emergency department and subsequently started on hydrocortisone cream. He is now much improved with no further symptoms related to the hemorrhoids. I recommended he continue the hydrocortisone for another week and then stop. He should return as needed for recurrences. Coding Level of Care Code Est Pt Level 3 (94800) Diagnoses Grade III hemorrhoids K64.2 Hemorrhoid type: third degree
[2024-11-05 15:03] VITALS: BP 156/93; PULSE 87; BMI 32.3
== END 2024-11-05 15:24 | disposition home or self-care (01) ==
PROVIDERS: PCP Physician Assistant; Visit Provider Surgery
DX: K64.2 Third degree hemorrhoids (principal)
CPT/HCPCS: 99213

== ENCOUNTER → 2024-11-05 14:46 | Outpatient (BNVA) | payer MEDICAID, SELFPAY | PROVIDERS: PCP Physician Assistant; Visit Provider Surgery | DX: K64.2 Third degree hemorrhoids (principal) | CPT/HCPCS: 99212 ==